=== PATIENT | male | born 1975 | race Two or more races ===

== ENCOUNTER 2024-08-18 11:55 | Emergency (ER) | payer MEDICARE, MEDICAID ==
[~2024-08-18] VITALS: Ht 182.9 cm; Wt 83.0 kg
[2024-08-18 12:34] VITALS: BP 148/97; PULSE 86; RESP 16; TEMP 98.1; O2SAT 98
--- NOTE | 2024-08-18 13:07 | ED.PDOC ---
Eye-HPI HPI Comments A 49 YEAR OLD MALE PRESENTS TO THE ED WITH CHIEF COMPLAINT OF DENTAL PAIN. PATIENT REPORTS THAT HIS RIGHT LOWER MOLAR BROKE OFF AND NOW HAS BEEN CAUSING PAIN SINCE YESTERDAY. PATIENT RELAYS THAT HIS NEXT DENTAL APPOINTMENT IS ON THURSDAY. PATIENT REQUESTS PAIN MEDICATION AND ANTIBIOTICS TO HOLD HIM OVER TILL THEN. PATIENT DENIES ANY BLEEDING, DISCHARGE, OR SORE THROAT. NO OTHER SYMPTOMS REPORTED AT THIS TIME OF CARE. Chief Complaint: Tooth Pain Time Seen by MD: 13:03 Primary Care Provider: VALENTIN Burk Notes: Nurses Notes, Medications, Allergies Allergies: Coded Allergies: NO KNOWN ALLERGIES (Unverified , 08/18/24) Home Meds Active Scripts Tramadol HCl (Tramadol HCl) 50 Mg Tab, 50 MG PO TID, #20 TAB Prov:EDDI KAPADIA 08/18/24 Clindamycin Hcl (Clindamycin Hcl) 300 Mg Cap, 1 CAP PO TID, #30 CAP Prov:EDDI KAPADIA 08/18/24 Information Source: Patient Mode of Arrival: Ambulatory Timing: Days Duration: Since onset Prehospital treatment: None Quality: Pain Lids: Normal Conjunctiva: Normal Cornea: Normal Pupils: Normal EOM: Normal Fundus: Normal Slit lamp exam: Normal Anterior chamber: Normal Mouth Location: Right, Lower, Tooth/Teeth, Gums Mouth: Right, Lower, Molar Nose: Normal Sinuses: Normal Oropharynx: Normal Throat Exposed to: None History of: None Associated signs and symptoms: Tooth Pain Past Medical History PAST MEDICAL HISTORY: Denies Surgical History: Denies all surgeries Family History Family History: Reviewed,noncontributory to illness Social History Smoker: Non-Smoker Alcohol: Denies ETOH Use Drugs: Denies Drug Use Lives In: Home Constitutional: denies: chills, diaphoresis, fatigue, fever, malaise, sweats, weakness, others EENTM: reports: mouth pain (RIGHT LOWER GUM PAIN AND SWELLING); denies: blurred vision, double vision, ear bleeding, ear discharge, ear drainage, ear pain, ear ringing, eye pain, eye redness, hearing loss, mouth swelling, nasal discharge, nose bleeding, nose congestion, nose pain, photophobia, tearing, throat pain, throat swelling, voice changes, others Respiratory: denies: cough, hemoptysis, orthopnea, SOB at rest, shortness of breath, SOB with excertion, stridor, wheezing, others Cardiovascular: denies: chest pain, dizzy spells, diaphoresis, Dyspnea on exertion, edema, irregular heart beat, left arm pain, lightheadedness, palpitations, PND, syncope, others Gastrointestinal: denies: abdomen distended, abdominal pain, blood streaked bowels, constipated, diarrhea, dysphagia, difficulty swallowing, hematemesis, melena, nausea, poor appetite, poor fluid intake, rectal bleeding, rectal pain, vomiting, others Genitourinary: denies: burning, dysuria, flank pain, frequency, hematuria, incontinence, penile discharge, penile sore, pain, testicle pain, testicle swelling, urgency, others Neurological: denies: dizziness, fainting, headache, left sided numbness, left sided weakness, numbness, paresthesia, pre-existing deficit, right sided numbness, right sided weakness, seizure, speech problems, tingling, tremors, weakness, others Musculoskeletal: denies: back pain, gout, joint pain, joint swelling, muscle pain, muscle stiffness, neck pain, others Integumetry: denies: bruises, change in color, change in hair/nails, dryness, laceration, lesions, lumps, rash, wounds, others Allergic/Immunocompromised: denies: Difficulty Healing, Frequent Infections, Hives, Itching, others Hematologic/Lymphatic: denies: anemia, blood clots, easy bleeding, easy bruising, swollen glands, others Endocrine: denies: excessive hunger, excessive sweating, excessive thirst, excessive urination, flushing, intolerance to cold, intolerance to heat, unexplained weight gain, unexplained weight loss, others Psychiatric: denies: anxiety, bipolar disorder, depression, hopeless, panic disorder, schizophrenia, sleepless, suicidal, others All Other Systems: Reviewed and Negative Physical Exam General Appearance: No Apparent Distress, Normal HEENT: Normal ENT Inspection, PERRL/EOMI, Other (ERYTHEMA AND SWELLING ON RIGHT LOWER GUM AROUND TOOTH, DENTAL INFECTION, NO FACIAL SWELLING. ) Neck: Full Range of Motion, Non-Tender, Normal, Normal Inspection Respiratory: Chest Non-Tender, Lungs Clear, No Accessory Muscle Use, No Respiratory Distress, Normal Breath Sounds Cardiovascular: No Edema, No JVD, No Murmur, No Gallop, Normal Peripheral Pulses, Regular Rate/Rhythm Breast Exam: Deferred Gastrointestinal: No Organomegaly, Non Tender, No Pulsatile Mass, Normal Bowel Sounds, Soft Genitalia: Deferred Pelvic: Deferred Rectal: Deferred Extremities: No calf tenderness, Normal capillary refill, Normal inspection, Normal range of motion, Non-tender, No pedal edema Musculoskeletal : Apperance: Normal Neurologic: Alert, can crimper II-XII nml as Tested, No Motor Deficits, Normal Affect, Normal Mood, No Sensory Deficits Cerebellar Function: Normal Reflexes: Normal Skin: Dry, Normal Color, Warm Peripheral Pulses: 2+ carotid (R), 2+ carotid (L) Lymphatic: No Adenopathy Was a procedure done? Was a procedure done?: No EENT DIFF Eye: N/A Ear: Otitis Media, Dental Sore Throat: Pharyngitis X-Ray, Labs, Meds, VS Vital Signs Date Time Temp Pulse Resp B/P (MAP) Pulse Ox O2 Delivery O2 Flow Rate FiO2 08/18/24 12:34 98.1 86 16 148/97 (114) 98 98.1 08/18/24 12:34 86 16 98 Room Air 08/18/24 12:13 98.1 86 16 141/106 (118) 98 148/97 (114) X-Ray, Labs, Meds, VS Comment EXTERNAL MEDICAL RECORDS REVIEWED: [NONE] INDEPENDENT HISTORIANS: [NONE] SOCIAL DETERMINANTS OF HEALTH: [NONE] LABS ORDERED: NONE REVIEWED AND INTERPRETED RESULTS: NONE IMAGING ORDERED: NONE TREATMENTS ORDERED: NONE PROCEDURES PERFORMED: NONE CRITICAL CARE TIME: NONE I HAVE DISCUSSED THE PATIENT WITH THE ATTENDING PHYSICIAN DR. REICH AND HE AGREES WITH THE PATIENT'S PLAN OF CARE AND DISPOSITION. BASED ON HISTORY OF PRESENT ILLNESS, AND PHYSICAL EXAM, PATIENT WILL BE DISCHARGED HOME. DISCUSSED PLAN FOR DISCHARGE HOME WITH RX. MEDICATION WARNINGS GIVEN. SHARED DECISION MAKING: DISCUSSED WITH PATIENT THAT THEIR WORKUP WAS NORMAL. P ATIENT INSTRUCTED TO FOLLOW UP WITH PRIMARY CARE PROVIDER IN 1-2 DAYS FOR RE- EVALUATION OF SYMPTOMS. PATIENT VERBALIZES UNDERSTANDING TO RETURN TO ED FOR NEW OR WORSENING SYMPTOMS OR IF FOLLOW UP WITH PCP CANNOT BE OBTAINED. PATIENT FEELS COMFORTABLE GOING HOME AT THIS TIME. ALL QUESTIONS ADDRESSED AT TIME OF DISCHARGE. Time of 1ST Reevaluation: 13:11 Reevaluation 1ST: Unchanged Patient Education/Counseling: Diagnosis, Treatment, Need For Follow Up Family Education/Counseling: Diagnosis, Treatment, Need For Follow Up, No Family Present Medical Screening: No EMC Exist At This Time Departure 1 Departure Time of Disposition: 13:24 Impression: Primary Impression: Infected dental caries Disposition: HOME / SELF CARE / HOMELESS Condition: Stable Additional Instructions: FOLLOW-UP WITH PCP IN 1 TO 2 DAYS. TAKE MEDICATIONS PRESCRIBED. RETURN TO ED FOR ANY NEW OR WORSENING SYMPTOMS. e-Prescriptions Tramadol HCl (Tramadol HCl) 50 Mg Tab 50 MG PO TID, #20 TAB Prov: EDDI KAPADIA 08/18/24 Clindamycin Hcl (Clindamycin Hcl) 300 Mg Cap 1 CAP PO TID, #30 CAP Prov: EDDI KAPADIA 08/18/24 Discharged With: Self Critical Care Note Critical Care Time?: No Stability Stability form required: No Heart Score Heart Score: Heart Score Response (Comments) Value History N/A 0 EKG N/A 0 Age N/A 0 Risk Factors N/A 0 Troponin N/A 0 Total 0 I personally scribed for EDDI KAPADIA ([email or web address]) on 08/18/24 at 13:07. Electronically submitted by Lance Tony [email or web address]). EDDI KAPADIA Aug 18, 2024 13:07
[2024-08-18] MEDS ORDERED: CLIN1CAP70 PO (13:23)
[2024-08-18] MEDS ORDERED: TRAM-626 PO (13:23)
== END 2024-08-18 13:24 | disposition home or self-care (01) ==
LOC: ER 12:10
DX: K02.9 Dental caries, unspecified (principal); Z79.899 Other long term (current) drug therapy

== ENCOUNTER 2024-09-15 07:46 | Emergency (ER) | payer MEDICAID, MEDICARE ==
[~2024-09-15] VITALS: Ht 185.4 cm; Wt 85.9 kg
[~2024-09-15 07:46] MED LIST: CLIN1CAP70 PO; TRAM-626 PO
[2024-09-15 08:13] VITALS: BP 156/87; PULSE 79; RESP 18; TEMP 97.6; O2SAT 100
[2024-09-15] MEDS ORDERED: TRAM-626 PO (08:22)
--- NOTE | 2024-09-15 08:33 | ED.PDOC ---
Eye-HPI HPI Comments A 49 YEAR OLD MALE PRESENTS TO THE ED WITH CHIEF COMPLAINT OF DENTAL PAIN. PATIENT REPORTS THAT HE HAS BEEN EXPERIENCING RIGHT LOWER MOLAR PAIN FOR THE PAST 3-4 DAYS AFTER HIS TOOTH BROKE. PATIENT RELAYS THAT HIS PAIN IS A 10/10 AND REQUESTS PAIN MEDICATION STRONGER THAN IBUPROFEN IT HAS PROVIDED NO RELIEF FOR HIM. PATIENT NOTES HE MADE AN APPOINTMENT ALREADY WITH HIS DENTIST. PATIENT DENIES ANY FEVER, CHILLS, SORE THROAT, OR MOUTH SWELLING. NO OTHER SYMPTOMS REPORTED AT THIS TIME OF CARE. Chief Complaint: Tooth Pain Time Seen by MD: 08:28 Primary Care Provider: VALENTIN Reviewed Notes: Nurses Notes, Medications, Allergies Allergies: Coded Allergies: NO KNOWN ALLERGIES (Unverified , 08/18/24) Home Meds Active Scripts Tramadol HCl (Tramadol HCl) 50 Mg Tab, 50 MG PO BID, #20 TAB Prov:EDDI KAPADIA 09/15/24 Clindamycin Hcl (Clindamycin Hcl) 300 Mg Cap, 1 CAP PO TID, #30 CAP Prov:EDDI KAPADIA 09/15/24 Tramadol HCl (Tramadol HCl) 50 Mg Tab, 50 MG PO TID, #20 TAB Prov:EDDI KAPADIA 08/18/24 Clindamycin Hcl (Clindamycin Hcl) 300 Mg Cap, 1 CAP PO TID, #30 CAP Prov:EDDI KAPADIA 08/18/24 Information Source: Patient Mode of Arrival: Ambulatory Timing: Days Duration: Since onset Prehospital treatment: None Quality: Pain Lids: Normal Conjunctiva: Normal Cornea: Normal Pupils: Normal EOM: Normal Fundus: Normal Anterior chamber: Normal Mouth Location: Right, Lower, Tooth/Teeth, Gums Mouth: Right, Lower, Premolar, Molar, Tender, Carious ENT Ear Exam: Normal, Normal, Normal Nose: Normal Sinuses: Normal Oropharynx: Normal Onset: Spontaneous Throat Exposed to: None History of: None Associated signs and symptoms: Tooth Pain Past Medical History PAST MEDICAL HISTORY: Denies Surgical History: Denies all surgeries Family History Family History: Reviewed,noncontributory to illness Social History Smoker: Non-Smoker Alcohol: Denies ETOH Use Drugs: Denies Drug Use Lives In: Home Constitutional: denies: chills, diaphoresis, fatigue, fever, malaise, sweats, weakness, others EENTM: reports: mouth pain; denies: blurred vision, double vision, ear bleeding, ear discharge, ear drainage, ear pain, ear ringing, eye pain, eye redness, hearing loss, mouth swelling, nasal discharge, nose bleeding, nose congestion, nose pain, photophobia, tearing, throat pain, throat swelling, voice changes, others Respiratory: denies: cough, hemoptysis, orthopnea, SOB at rest, shortness of breath, SOB with excertion, stridor, wheezing, others Cardiovascular: denies: chest pain, dizzy spells, diaphoresis, Dyspnea on e xertion, edema, irregular heart beat, left arm pain, lightheadedness, palpitations, PND, syncope, others Gastrointestinal: denies: abdomen distended, abdominal pain, blood streaked bowels, constipated, diarrhea, dysphagia, difficulty swallowing, hematemesis, melena, nausea, poor appetite, poor fluid intake, rectal bleeding, rectal pain, vomiting, others Genitourinary: denies: burning, dysuria, flank pain, frequency, hematuria, incontinence, penile discharge, penile sore, pain, testicle pain, testicle swelling, urgency, others Neurological: denies: dizziness, fainting, headache, left sided numbness, left sided weakness, numbness, paresthesia, pre-existing deficit, right sided numbness, right sided weakness, seizure, speech problems, tingling, tremors, weakness, others Musculoskeletal: denies: back pain, gout, joint pain, joint swelling, muscle pain, muscle stiffness, neck pain, others Integumetry: denies: bruises, change in color, change in hair/nails, dryness, laceration, lesions, lumps, rash, wounds, others Allergic/Immunocompromised: denies: Difficulty Healing, Frequent Infections, Hives, Itching, others Hematologic/Lymphatic: denies: anemia, blood clots, easy bleeding, easy bruising, swollen glands, others Endocrine: denies: excessive hunger, excessive sweating, excessive thirst, excessive urination, flushing, intolerance to cold, intolerance to heat, unexplained weight gain, unexplained weight loss, others Psychiatric: denies: anxiety, bipolar disorder, depression, hopeless, panic disorder, schizophrenia, sleepless, suicidal, others All Other Systems: Reviewed and Negative Physical Exam General Appearance: No Apparent Distress, Normal HEENT: Normal ENT Inspection, PERRL/EOMI, Other (ERYTHEMA AND SWELLING ON RIGHT LOWER GUM AROUND TOOTH, DENTAL DECAY AND INFECTION, NO FACIAL SWELLING AND REDNESS. ) Neck: Full Range of Motion, Non-Tender, Normal, Normal Inspection Respiratory: Chest Non-Tender, Lungs Clear, No Accessory Muscle Use, No Respiratory Distress, Normal Breath Sounds Cardiovascular: No Edema, No JVD, No Murmur, No Gallop, Normal Peripheral Pu lses, Regular Rate/Rhythm Breast Exam: Deferred Gastrointestinal: No Organomegaly, Non Tender, No Pulsatile Mass, Normal Bowel Sounds, Soft Genitalia: Deferred Pelvic: Deferred Rectal: Deferred Extremities: No calf tenderness, Normal capillary refill, Normal inspection, Normal range of motion, Non-tender, No pedal edema Musculoskeletal : Apperance: Normal Neurologic: Alert, applications instructor II-XII nml as Tested, No Motor Deficits, Normal Affect, Normal Mood, No Sensory Deficits Cerebellar Function: Normal Reflexes: Normal Skin: Dry, Normal Color, Warm Peripheral Pulses: 2+ carotid (R), 2+ carotid (L) Lymphatic: No Adenopathy Was a procedure done? Was a procedure done?: No EENT DIFF Eye: N/A Ear: Otitis Externa, Otitis Media, Dental Mouth: Other (DENTAL INFECTION) X-Ray, Labs, Meds, VS Vital Signs Date Time Temp Pulse Resp B/P (MAP) Pulse Ox O2 Delivery O2 Flow Rate FiO2 09/15/24 08:13 97.6 79 18 158/108 (125) 100 97.6 09/15/24 08:13 79 18 100 Room Air 09/15/24 07:55 97.6 79 18 158/108 (125) 100 97.6 X-Ray, Labs, Meds, VS Comment EXTERNAL MEDICAL RECORDS REVIEWED: [NONE] INDEPENDENT HISTORIANS: [NONE] SOCIAL DETERMINANTS OF HEALTH: [NONE] LABS ORDERED: NONE REVIEWED AND INTERPRETED RESULTS: NONE IMAGING ORDERED: NONE TREATMENTS ORDERED: NONE PROCEDURES PERFORMED: NONE CRITICAL CARE TIME: NONE I HAVE DISCUSSED THE PATIENT WITH THE ATTENDING PHYSICIAN DR. REICH AND HE AGREES WITH THE PATIENT'S PLAN OF CARE AND DISPOSITION. BASED ON HISTORY OF PRESENT ILLNESS, AND PHYSICAL EXAM, PATIENT WILL BE DISCHARGED HOME. DISCUSSED PLAN FOR DISCHARGE HOME WITH RX: CLINDAMYCIN AND ULTRAM. MEDICATION WARNINGS GIVEN. SHARED DECISION MAKING: DISCUSSED WITH PATIENT THAT THEIR WORKUP WAS NORMAL. PATIENT INSTRUCTED TO FOLLOW UP WITH PRIMARY CARE PROVIDER IN 1-2 DAYS FOR RE- EVALUATION OF SYMPTOMS. PATIENT VERBALIZES UNDERSTANDING TO RETURN TO ED FOR NEW OR WORSENING SYMPTOMS OR IF FOLLOW UP WITH PCP CANNOT BE OBTAINED. PATIENT FEELS COMFORTABLE GOING HOME AT THIS TIME. ALL QUESTIONS ADDRESSED AT TIME OF DISCHARGE. Time of 1ST Reevaluation: 08:40 Reevaluation 1ST: Improved Patient Education/Counseling: Diagnosis, Treatment, Need For Follow Up Family Education/Counseling: Diagnosis, Treatment, Need For Follow Up, No Family Present Medical Screening: No EMC Exist At This Time Departure 1 Departure Time of Disposition: 08:40 Impression: Primary Impression: Dental infection Disposition: 01 HOME / SELF CARE / HOMELESS Condition: Stable Additional Instructions: FOLLOW-UP WITH PCP IN 1 TO 2 DAYS. TAKE MEDICATIONS PRESCRIBED. RETURN TO ED FOR ANY NEW OR WORSENING SYMPTOMS. e-Prescriptions Tramadol HCl (Tramadol HCl) 50 Mg Tab 50 MG PO BID, #20 TAB Prov: EDDI KAPADIA 09/15/24 Clindamycin Hcl (Clindamycin Hcl) 300 Mg Cap 1 CAP PO TID, #30 CAP Prov: EDDI KAPADIA 09/15/24 Discharged With: Self Critical Care Note Critical Care Time?: No Stability Stability form required: No Heart Score Heart Score: Heart Score Response (Comments) Value History N/A 0 EKG N/A 0 Age N/A 0 Risk Factors N/A 0 Troponin N/A 0 Total 0 I personally scribed for EDDI KAPADIA ([email or web address]) on 09/15/24 at 08:33. Electronically submitted by Lance Tony [email or web address]). EDDI KAPADIA Sep 15, 2024 08:33
== END 2024-09-15 08:35 | disposition home or self-care (01) ==
LOC: ER 07:46
DX: K04.7 Periapical abscess without sinus (principal); Z79.899 Other long term (current) drug therapy

== ENCOUNTER 2024-11-30 02:14 | Emergency (ER) | payer MEDICARE, MEDICAID ==
[~2024-11-30] VITALS: Ht 182.9 cm; Wt 91.7 kg
[2024-11-30 03:06] VITALS: BP 135/96; PULSE 86; RESP 16; TEMP 98.1; O2SAT 98
[2024-11-30] MEDS ORDERED: CYCL-837 PO (03:11)
[2024-11-30] MEDS ORDERED: IBUP-1456 PO (03:11)
[2024-11-30] MEDS: KETOROLAC TROMETH 60MG/2ML VIAL IM ONE (03:13)
--- NOTE | 2024-11-30 03:13 | ED.PDOC ---
Back pain HPI HPI Comments 49-year-old male presents to ER with complaints of back pain x3 days. 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 He rates his current pain a 10/10 to right lower lumbar region with radiation down posterior right leg. Denies use of medications for current symptoms. Patient presents to ER ambulatory, with steady gait, in mild distress. Denies fever, body aches, chills, night sweats, nausea/vomiting, numbness/tingling, shortness of breath, chest pain, abdominal pain, extremity weakness, trauma/falls, changes in urination/BM or any further symptoms/complaints Chief Complaint: Back Pain Time Seen by MD: 02:29 Primary Care Provider: VALENTIN Burk Notes: Nurses Notes, Medications, Allergies Allergies: Coded Allergies: NO KNOWN ALLERGIES (Unverified , 08/18/24) Home Meds Active Scripts Ibuprofen (Ibuprofen) 800 Mg Tab, 1 TAB PO TID PRN, #30 TAB 0 Refills Prov:SHANE MEDINA 11/30/24 Cyclobenzaprine Hcl (Cyclobenzaprine Hcl) 5 Mg Tab, 1 TAB PO QHSP, #14 TAB 0 Refills Prov:SHANE MEDINA 11/30/24 Tramadol HCl (Tramadol HCl) 50 Mg Tab, 50 MG PO BID, #20 TAB Prov:EDDI KAPADIA 09/15/24 Clindamycin Hcl (Clindamycin Hcl) 300 Mg Cap, 1 CAP PO TID, #30 CAP Prov:EDDI KAPADIA 09/15/24 Tramadol HCl (Tramadol HCl) 50 Mg Tab, 50 MG PO TID, #20 TAB Prov:EDDI KAPADIA 08/18/24 Clindamycin Hcl (Clindamycin Hcl) 300 Mg Cap, 1 CAP PO TID, #30 CAP Prov:EDDI KAPADIA 08/18/24 Information Source: Patient Mode of Arrival: Ambulatory Past Medical History PAST MEDICAL HISTORY: Anxiety Surgical History (Other): Jaw surgery Family History Family History: Unknown Social History Smoker: Non-Smoker Alcohol: Denies ETOH Use Drugs: Denies Drug Use Lives In: Home Constitutional: denies: chills, diaphoresis, fatigue, fever, malaise, sweats, weakness, others EENTM: denies: blurred vision, double vision, ear bleeding, ear discharge, ear drainage, ear pain, ear ringing, eye pain, eye redness, hearing loss, mouth pain, mouth swelling, nasal discharge, nose bleeding, nose congestion, nose pain, photophobia, tearing, throat pain, throat swelling, voice changes, others Respiratory: denies: cough, hemoptysis, orthopnea, SOB at rest, shortness of breath, SOB with excertion, stridor, wheezing, others Cardiovascular: denies: chest pain, dizzy spells, diaphoresis, Dyspnea on exertion, edema, irregular heart beat, left arm pain, lightheadedness, palpitations, PND, syncope, others Gastrointestinal: denies: abdomen distended, abdominal pain, blood streaked bowels, constipated, diarrhea, dysphagia, difficulty swallowing, hematemesis, melena, nausea, poor appetite, poor fluid intake, rectal bleeding, rectal pain, vomiting, others Genitourinary: denies: burning, dysuria, flank pain, frequency, hematuria, incontinence, penile discharge, penile sore, pain, testicle pain, testicle swelling, urgency, others Neurological: denies: dizziness, fainting, headache, left sided numbness, left sided weakness, numbness, paresthesia, pre-existing deficit, right sided numbness, right sided weakness, seizure, speech problems, tingling, tremors, weakness, others Musculoskeletal: reports: others (As stated in HPI) Integumetry: denies: bruises, change in color, change in hair/nails, dryness, laceration, lesions, lumps, rash, wounds, others Allergic/Immunocompromised: denies: Difficulty Healing, Frequent Infections, Hives, Itching, others Hematologic/Lymphatic: denies: anemia, blood clots, easy bleeding, easy bruising, swollen glands, others Endocrine: denies: excessive hunger, excessive sweating, excessive thirst, excessive urination, flushing, intolerance to cold, intolerance to heat, unexplained weight gain, unexplained weight loss, others Psychiatric: denies: anxiety, bipolar disorder, depression, hopeless, panic disorder, schizophrenia, sleepless, suicidal, others Physical Exam General Appearance: Mild Distress (Due to back pain) HEENT: PERRL/EOMI Neck: Full Range of Motion, Non-Tender, Normal Respiratory: Chest Non-Tender, Lungs Clear, No Accessory Muscle Use, No Respiratory Distress, Normal Breath Sounds Cardiovascular: No Murmur, No Gallop, Regular Rate/Rhythm Breast Exam: Deferred Gastrointestinal: Non Tender, No Pulsatile Mass, Soft Genitalia: Deferred Pelvic: Deferred Rectal: Deferred Extremities: Normal capillary refill, Normal range of motion Musculoskeletal : Extremity Location: Back (TTP to right lower lumbar paraspinals noted. No skin changes noted. Gait slow due to pain localized to right lower lumbar paraspinals) Neurologic: Alert, community development planner II-XII nml as Tested, No Motor Deficits, No Sensory Deficits Cerebellar Function: Normal Reflexes: Normal Skin: Dry, Normal Color, Warm Peripheral Pulses: 2+ femoral (R), 2+ femoral (L), 2+ dorsalis pedis (R), 2+ dorsalis pedis (L), 2+ Radial (R), 2+ Radial (L), 2+ Brachial (R), 2+ Brachial (L) Lymphatic: No Adenopathy Was a procedure done? Was a procedure done?: No Sedation Sedation?: No Back Pain Differential Dx Differential Diagnosis: AAA, Fracture, Urinary Tract Infection X-Ray, Labs, Meds, VS Vital Signs Date Time Temp Pulse Resp B/P (MAP) Pulse Ox O2 Delivery O2 Flow Rate FiO2 11/30/24 03:06 Room Air* 0 21 11/30/24 03:06 98.1 86 16 135/96 (109) 98 98.1 11/30/24 02:20 98.1 86 16 135/96 (109) 98 98.1 Current Medications Medications (Trade) Dose Ordered Sig/Jory Route Start Time Stop Time Status Last Admin Ketorolac Tromethamine (Toradol Injection) 60 mg ONCE ONCE IM 11/30/24 03:15 11/30/24 03:16 DC 11/30/24 03:13 PATIENT: CHARIS MINOR ACCT: [id number] UNIT: [id number] : 1975 LOC: ER ROOM / BED: / AGE / SEX: 49 / M ADM STATUS: REG ER SERVICE [id number] ORDERING PHYSICIAN: SHANE MEDINA PROCEDURE(s): LUMB2 - LUMBAR SPINE 3 VIEW REASON: lumbar backpain ORDER NUMBER(s): [id number], ACCESSION NUMBER(s): [id number] INDICATION: lumbar backpain TECHNIQUE: 2 views of the lumbar spine were obtained. COMPARISON: None FINDINGS: There are no acute fractures or subluxations. IMPRESSION: No acute fracture or subluxation. ATED BY: LV COOL MD DICTATED DATE/TIME: 11/30/24420 SIGNED BY: LV COOL MD SIGNED DATE/TIME: 11/30/24420 CC: Toradol 60 mg IM ordered Lumbar spine x-ray reviewed Patient neurovascularly intact and reported improvement in symptoms prior to discharge Advised on rest/no strenuous activity Advised to follow up with PCP in 1-2 days Patient verbalized understanding and agreeable with current plan of care Advised to return to ER immediately if symptoms worsen Images Reviewed?: Images reviewed and evaluated by me Time of 1ST Reevaluation: 02:54 Reevaluation 1ST: N/A Time of 2ND Reevaluation: 04:20 Reevaluation 2ND: Improved Patient Education/Counseling: Diagnosis, Treatment, Prognosis, Need For Follow Up Family Education/Counseling: No Family Present Departure 1 Departure Time of Disposition: 04:26 Impression: Primary Impression: Lumbar strain Qualified Codes: S39.012A - Strain of muscle, fascia and tendon of lower back, initial encounter Disposition: HOME / SELF CARE / HOMELESS Condition: Stable e-Prescriptions Ibuprofen (Ibuprofen) 800 Mg Tab 1 TAB PO TID PRN, #30 TAB 0 Refills Prov: SHANE MEDINA 11/30/24 Cyclobenzaprine Hcl (Cyclobenzaprine Hcl) 5 Mg Tab 1 TAB PO QHSP, #14 TAB 0 Refills Prov: SHANE MEDINA 11/30/24 Discharged With: Friend Critical Care Note Critical Care Time?: No Stability Stability form required: No Heart Score Heart Score: Heart Score Response (Comments) Value History N/A 0 EKG N/A 0 Age N/A 0 Risk Factors N/A 0 Troponin N/A 0 Total 0 SHANE MEDINA Nov 30, 2024 03:13
--- NOTE | 2024-11-30 04:24 | DVH ---
INDICATION: lumbar backpain TECHNIQUE: 2 views of the lumbar spine were obtained. COMPARISON: None FINDINGS: There are no acute fractures or subluxations. IMPRESSION: No acute fracture or subluxation.
== END 2024-11-30 04:27 | disposition home or self-care (01) ==
LOC: ER 02:16
DX: S39.012A Strain of muscle, fascia and tendon of lower back, initial encounter (principal); F41.9 Anxiety disorder, unspecified; X58.XXXA Exposure to other specified factors, initial encounter; Y93.89 Activity, other specified; Y92.89 Other specified places as the place of occurrence of the external cause; Y99.8 Other external cause status
CPT/HCPCS: 72100; 96372; 99283; J1885

== ENCOUNTER 2024-12-03 03:22 | Emergency (ER) | payer MEDICARE, MEDICAID ==
[~2024-12-03] VITALS: Ht 182.9 cm; Wt 95.8 kg
[~2024-12-03 03:22] MED LIST changes: +CYCL-837 PO; +IBUP-1456 PO
[2024-12-03 04:35] VITALS: BP 134/69; PULSE 74; RESP 16; TEMP 98.4; O2SAT 99
[2024-12-03] MEDS ORDERED: HYDROcodone-ACET 5/325MG TAB PO ONE (05:45)
[2024-12-03] MEDS ORDERED: IBUPROFEN 600 MG TAB PO ONE (05:45)
--- NOTE | 2024-12-03 05:55 | ED.PDOC ---
Back pain HPI HPI Comments 49-year-old male presents to the ED chief complaint right hip pain. Patient states sudden onset of right hip pain started 4 days ago after lifting heavy weights. Describes pain as sharp shooting pain to in her groin shooting down anterior leg 8/10 on pain scale. Patient states has not tried any [id number] relief measures. Denies any numbness, weakness. Chief Complaint: Lower Extremity Time Seen by MD: 03:24 Primary Care Provider: VALENTIN Burk Notes: Nurses Notes, Medications, Allergies Allergies: Coded Allergies: NO KNOWN ALLERGIES (Unverified , 08/18/24) Home Meds Active Scripts Ibuprofen (Ibuprofen) 800 Mg Tab, 1 TAB PO TID PRN, #30 TAB 0 Refills Prov:SHANE MEDINA 11/30/24 Cyclobenzaprine Hcl (Cyclobenzaprine Hcl) 5 Mg Tab, 1 TAB PO QHSP, #14 TAB 0 Refills Prov:SHANE MEDINA 11/30/24 Tramadol HCl (Tramadol HCl) 50 Mg Tab, 50 MG PO BID, #20 TAB Prov:EDDI KAPADIA 09/15/24 Clindamycin Hcl (Clindamycin Hcl) 300 Mg Cap, 1 CAP PO TID, #30 CAP Prov:EDDI KAPADIA 09/15/24 Tramadol HCl (Tramadol HCl) 50 Mg Tab, 50 MG PO TID, #20 TAB Prov:EDDI KAPADIA 08/18/24 Clindamycin Hcl (Clindamycin Hcl) 300 Mg Cap, 1 CAP PO TID, #30 CAP Prov:EDDI KAPADIA 08/18/24 Information Source: Patient Mode of Arrival: Ambulatory Past Medical History PAST MEDICAL HISTORY: Anxiety Family History Family History: Unknown Social History Smoker: Non-Smoker Alcohol: Denies ETOH Use Drugs: Denies Drug Use Lives In: Home Constitutional: denies: chills, diaphoresis, fatigue, fever, malaise, sweats, weakness, others EENTM: denies: blurred vision, double vision, ear bleeding, ear discharge, ear drainage, ear pain, ear ringing, eye pain, eye redness, hearing loss, mouth pain, mouth swelling, nasal discharge, nose bleeding, nose congestion, nose pain, photophobia, tearing, throat pain, throat swelling, voice changes, others Respiratory: denies: cough, hemoptysis, orthopnea, SOB at rest, shortness of breath, SOB with excertion, stridor, wheezing, others Cardiovascular: denies: chest pain, dizzy spells, diaphoresis, Dyspnea on exertion, edema, irregular heart beat, left arm pain, lightheadedness, palpitations, PND, syncope, others Gastrointestinal: denies: abdomen distended, abdominal pain, blood streaked bowels, constipated, diarrhea, dysphagia, difficulty swallowing, hematemesis, melena, nausea, poor appetite, poor fluid intake, rectal bleeding, rectal pain, vomiting, others Genitourinary: denies: burning, dysuria, flank pain, frequency, hematuria, incontinence, penile discharge, penile sore, pain, testicle pain, testicle swelling, urgency, others Neurological: denies: dizziness, fainting, headache, left sided numbness, left sided weakness, numbness, paresthesia, pre-existing deficit, right sided numbness, right sided weakness, seizure, speech problems, tingling, tremors, weakness, others Musculoskeletal: reports: joint pain; denies: back pain, gout, joint swelling, muscle pain, muscle stiffness, neck pain, others Integumetry: denies: bruises, change in color, change in hair/nails, dryness, laceration, lesions, lumps, rash, wounds, others Allergic/Immunocompromised: denies: Difficulty Healing, Frequent Infections, Hives, Itching, others Hematologic/Lymphatic: denies: anemia, blood clots, easy bleeding, easy bruising, swollen glands, others Endocrine: denies: excessive hunger, excessive sweating, excessive thirst, excessive urination, flushing, intolerance to cold, intolerance to heat, unexplained weight gain, unexplained weight loss, others Psychiatric: denies: anxiety, bipolar disorder, depression, hopeless, panic disorder, schizophrenia, sleepless, suicidal, others Physical Exam General Appearance: No Apparent Distress, Normal HEENT: Pharynx Normal Neck: Full Range of Motion, Non-Tender Respiratory: Lungs Clear, No Respiratory Distress, Normal Breath Sounds Cardiovascular: No Murmur, Normal Peripheral Pulses, Regular Rate/Rhythm Breast Exam: Deferred Gastrointestinal: Non Tender, Soft Genitalia: Deferred Pelvic: Deferred Rectal: Deferred Extremities: Normal capillary refill, Normal inspection, Normal range of motion, Non-tender, No pedal edema Musculoskeletal : Location: Right Extremity Location: Hip (Moderate discomfort on full range of motion. In his palpated anterior and lateral hip no noted external gross visible trauma. Strength sensory and motion intact no shortening or rotation of the right leg positive pedal pulse) Apperance: Normal Neurologic: Alert, operations general agent II-XII nml as Tested, No Motor Deficits, Normal Affect, Normal Mood, No Sensory Deficits Cerebellar Function: Normal Reflexes: Normal Skin: Dry, Normal Color, Warm Lymphatic: No Adenopathy Was a procedure done? Was a procedure done?: No Back Pain Differential Dx Differential Diagnosis: Fracture, Musculoskeletal Pain X-Ray, Labs, Meds, VS Vital Signs Date Time Temp Pulse Resp B/P (MAP) Pulse Ox O2 Delivery O2 Flow Rate FiO2 12/03/24 04:35 98.4 74 16 134/69 (90) 99 98.4 X-Ray, Labs, Meds, VS Comment PATIENT CALLED OUT IN THE LOBBY AND OUTSIDE X3 WITH NO ANSWER PATIENT ELOPED Time of 1ST Reevaluation: 05:30 Reevaluation 1ST: Unchanged Patient Education/Counseling: Diagnosis, Treatment, Prognosis, Need For Follow Up Family Education/Counseling: No Family Present Departure 1 Departure Time of Disposition: 06:52 Impression: Primary Impression: Pain in left hip Disposition: 07 LEFT AWOL/ELOPED Condition: Stable Discharged With: Self Critical Care Note Critical Care Time?: No Stability Stability form required: JOO Ram Dec 03, 2024 05:55
== END 2024-12-03 06:52 | disposition left against medical advice (07) ==
LOC: ER 03:28
DX: M25.551 Pain in right hip (principal); F41.9 Anxiety disorder, unspecified; Z79.899 Other long term (current) drug therapy

== ENCOUNTER 2024-12-07 09:03 | Emergency (ER) | payer MEDICARE, MEDICAID ==
[~2024-12-07] VITALS: Ht 182.9 cm; Wt 95.7 kg
--- NOTE | 2024-12-07 09:14 | ED.PDOC ---
Musculoskeletal HPI Comments This is a 49 year old male RYAN presenting to the ED with chief complaint of right leg pain. Patient reports that he has been experiencing right inner thigh pain the day after doing "leg day" at the gym for the past 4 days, feeling a pop in his inner thigh. Patient relays that his pain radiates down to his knee and calf. Patient states that he is only able to walk around for a short time before pain becomes unbearable. Patient denies any chest pain, SOB, numbness, weakness, tingling, or fall injury. Chief Complaint: Lower Extremity Time Seen by MD: 09:09 Primary Care Provider: VALENTIN Burk Notes: Nurses Notes, Breaker Oiler Notes, Medications, Allergies Allergies: Coded Allergies: NO KNOWN ALLERGIES (Unverified , 08/18/24) Home Meds Active Scripts Ibuprofen (Ibuprofen) 800 Mg Tab, 1 TAB PO TID PRN, #30 TAB 0 Refills Prov:SHANE MEDINA 11/30/24 Cyclobenzaprine Hcl (Cyclobenzaprine Hcl) 5 Mg Tab, 1 TAB PO QHSP, #14 TAB 0 Refills Prov:SHANE MEDINA 11/30/24 Tramadol HCl (Tramadol HCl) 50 Mg Tab, 50 MG PO BID, #20 TAB Prov:EDDI KAPADIA 09/15/24 Clindamycin Hcl (Clindamycin Hcl) 300 Mg Cap, 1 CAP PO TID, #30 CAP Prov:EDDI KAPADIA 09/15/24 Tramadol HCl (Tramadol HCl) 50 Mg Tab, 50 MG PO TID, #20 TAB Prov:EDDI KAPADIA 08/18/24 Clindamycin Hcl (Clindamycin Hcl) 300 Mg Cap, 1 CAP PO TID, #30 CAP Prov:EDDI KAPADIA 08/18/24 Information Source: Patient, Emergency Med Personnel Mode of Arrival: EMS Location: Right Extremity Location: Leg Timing: Days Prehospital treatment: None Severity: Moderate Able to Move Extremity: Yes Bear Weight: Limited Pain: Moderate Mechanism: Hyperextension Circumstances: Sporting Onset of Symptoms: Spontaneous Symptoms: Pain DVT Risk Factors: NONE Last Tetanus: Unknown Past Medical History PAST MEDICAL HISTORY: Anxiety Surgical History: Denies all surgeries Family History Family History: Reviewed,noncontributory to illness, Unknown Social History Smoker: Non-Smoker Alcohol: Denies ETOH Use Drugs: Denies Drug Use Lives In: Home Constitutional: denies: chills, diaphoresis, fatigue, fever, malaise, sweats, weakness, others EENTM: denies: blurred vision, double vision, ear bleeding, ear discharge, ear drainage, ear pain, ear ringing, eye pain, eye redness, hearing loss, mouth pain, mouth swelling, nasal discharge, nose bleeding, nose congestion, nose p ain, photophobia, tearing, throat pain, throat swelling, voice changes, others Respiratory: denies: cough, hemoptysis, orthopnea, SOB at rest, shortness of breath, SOB with excertion, stridor, wheezing, others Cardiovascular: denies: chest pain, dizzy spells, diaphoresis, Dyspnea on exertion, edema, irregular heart beat, left arm pain, lightheadedness, palpitations, PND, syncope, others Gastrointestinal: denies: abdomen distended, abdominal pain, blood streaked bowels, constipated, diarrhea, dysphagia, difficulty swallowing, hematemesis, melena, nausea, poor appetite, poor fluid intake, rectal bleeding, rectal pain, vomiting, others Genitourinary: denies: burning, dysuria, flank pain, frequency, hematuria, incontinence, penile discharge, penile sore, pain, testicle pain, testicle swelling, urgency, others Neurological: denies: dizziness, fainting, headache, left sided numbness, left sided weakness, numbness, paresthesia, pre-existing deficit, right sided numbness, right sided weakness, seizure, speech problems, tingling, tremors, weakness, others Musculoskeletal: reports: others (Right leg pain); denies: back pain, gout, joint pain, joint swelling, muscle pain, muscle stiffness, neck pain Integumetry: denies: bruises, change in color, change in hair/nails, dryness, laceration, lesions, lumps, rash, wounds, others Allergic/Immunocompromised: denies: Difficulty Healing, Frequent Infections, Hives, Itching, others Hematologic/Lymphatic: denies: anemia, blood clots, easy bleeding, easy bruising, swollen glands, others Endocrine: denies: excessive hunger, excessive sweating, excessive thirst, excessive urination, flushing, intolerance to cold, intolerance to heat, unexplained weight gain, unexplained weight loss, others Psychiatric: denies: anxiety, bipolar disorder, depression, hopeless, panic disorder, schizophrenia, sleepless, suicidal, others All Other Systems: Reviewed and Negative Physical Exam General Appearance: No Apparent Distress, Normal HEENT: Normal ENT Inspection, Pharynx Normal, TMs Normal Neck: Full Range of Motion, Non-Tender, Normal, Normal Inspection Respiratory: Chest Non-Tender, Lungs Clear, No Accessory Muscle Use, No Re spiratory Distress, Normal Breath Sounds Cardiovascular: No Edema, No JVD, No Murmur, No Gallop, Normal Peripheral Pulses, Regular Rate/Rhythm Breast Exam: Deferred Gastrointestinal: No Organomegaly, Non Tender, No Pulsatile Mass, Normal Bowel Sounds, Soft Genitalia: Deferred Pelvic: Deferred Rectal: Deferred Extremities: No calf tenderness, Normal capillary refill, Normal inspection, Normal range of motion, Non-tender, No pedal edema Musculoskeletal : Location: Right Extremity Location: Hip Apperance: Tenderness (Tenderness to palpation) Neurologic: Alert, water control station engineer II-XII nml as Tested, No Motor Deficits, Normal Affect, Normal Mood, No Sensory Deficits Cerebellar Function: Normal Reflexes: Normal Skin: Dry, Normal Color, Warm Lymphatic: No Adenopathy Was a procedure done? Was a procedure done?: No Differential Diagnosis EXT Differential Diagnosis: Fracture, Sprain, Dislocation, Contusion, Strain X-Ray, Labs, Meds, VS Vital Signs Date Time Temp Pulse Resp B/P (MAP) Pulse Ox O2 Delivery O2 Flow Rate FiO2 12/07/24 11:39 85 14 98 Room Air* 0 21 12/07/24 10:06 98.4 82 16 136/82 (100) 97 98.4 12/07/24 10:06 82 16 97 Room Air 12/07/24 09:09 98.4 81 18 158/88 (111) 99 98.4 Current Medications Medications (Trade) Dose Ordered Sig/Jory Route Start Time Stop Time Status Last Admin Acetaminophen/ Hydrocodone Bitart ([place] 5/325MG Tab) 1 tab ONCE ONCE PO 12/07/24 09:15 12/07/24 09:16 DC 12/07/24 10:05 Right Hip XR: FINDINGS/IMPRESSION: No acute fracture of the pelvis or hips. No significant degenerative changes of the hips. Right Knee XR: IMPRESSION: 1. No fracture or significant degenerative changes of the right knee. 2. Mild soft tissue prominence anterior to the patella and patellar tendon may be due to contusion or prepatellar bursitis. Images Reviewed?: Images reviewed and evaluated by me Time of 1ST Reevaluation: 10:09 Reevaluation 1ST: Unchanged Patient Education/Counseling: Diagnosis, Treatment Family Education/Counseling: No Family Present Additional Information Previous visits reviewed: 12/03/24 right hip pain The following tests were ordered, and results were reviewed by me: Right knee XR, Right hip XR Additional Information was gathered from interviewing the following independent historians: EMS I reviewed and agreed with the following test results read by other providers: Right knee XR, Right hip XR I discussed treatment and results with medical personnel and: patient Comprehensive systems review obtained and negative except for what is stated in the HPI. Departure 1 Departure Time of Disposition: 11:55 (Patient likely with a right hip sprain. We will discharge patient home with outpatient follow up) Impression: Primary Impression: Sprain of right hip Qualified Codes: S73.101A - Unspecified sprain of right hip, initial encounter Disposition: HOME / SELF CARE / HOMELESS Condition: Stable Referrals: AZUL NEFF MD Additional Instructions: You likely sprained your hip. Your x-rays were benign. You referred to orthopedics. Please call for an appointment. For pain you can take the followinam: Ibuprofen 400mg with food Noon: Acetaminophen 1000mg 4pm: Ibuprofen 400mg with food 8pm: Acetaminophen 1000mg You were prescribed oxycodone to take as needed for breakthrough pain. You should follow up with your regular doctor within one week to ensure you are doing better. If your symptoms worsen or you have any other concerns then please return to the ER. e-Prescriptions Oxycodone HCl (Oxycodone Hydrochloride) 5 Mg Tab 5 MG PO QID PRN for 4 Days, #16 TAB Prov: JARROD DOMINGUEZ MD 12/07/24 Discharged With: Self Critical Care Note Critical Care Time?: No Stability Stability form required: No Heart Score Heart Score: Heart Score Response (Comments) Value History N/A 0 EKG N/A 0 Age N/A 0 Risk Factors N/A 0 Troponin N/A 0 Total 0 I personally scribed for JARROD DOMINGUEZ MD ([email or web address]) on 12/07/24 at 09:14. Electronically submitted by Lance Tony ([email or web address]). I personally scribed for JARROD DOMINGUEZ MD ([email or web address]) on 12/07/24 at 09:19. Electronically submitted by Lance Tony ([email or web address]). I personally scribed for JARROD DOMINGUEZ MD ([email or web address]) on 12/07/24 at 10:43. Electronically submitted by Lance Tony ([email or web address]). JARROD DOMINGUEZ MD Dec 07, 2024 09:14
[2024-12-07] MEDS: HYDROcodone-ACET 5/325MG TAB PO ONE (10:05)
--- NOTE | 2024-12-07 10:10 | DVH ---
EXAM: XY R KNEE 3V XRAY HISTORY: PAIN COMPARISON: None TECHNIQUE: 3 views of the right knee were performed. FINDINGS: No acute fracture is identified about the right knee. No significant joint space narrowing. No evid ence of significant joint effusion. There is mild soft tissue prominence anterior to the patella and patellar tendon. IMPRESSION: 1. No fracture or significant degenerative changes of the right knee. 2. Mild soft tissue prominence anterior to the patella and patellar tendon may be due to contusion or prepatellar bursitis.
--- NOTE | 2024-12-07 10:10 | DVH ---
CLINICAL INDICATION: PAIN TECHNIQUE: AP view of the pelvis and AP and frogleg lateral views of the right hip were performed. X Y R HIP COMPLETE XRAY Comparison: None FINDINGS/IMPRESSION: No acute fracture of the pelvis or hips. No significant degenerative changes of the hips.
[2024-12-07 11:39] VITALS: PULSE 85; RESP 14; O2SAT 98
[2024-12-07] MEDS ORDERED: OXYC-900 PO (11:57)
[2024-12-07 12:08] VITALS: BP 139/89; PULSE 82; RESP 18; TEMP 98.6; O2SAT 97
== END 2024-12-07 12:09 | disposition home or self-care (01) ==
LOC: EDBD 09:03 → ER 09:03
DX: S73.101A Unspecified sprain of right hip, initial encounter (principal); X58.XXXA Exposure to other specified factors, initial encounter; Y93.89 Activity, other specified; Y92.89 Other specified places as the place of occurrence of the external cause; Y99.8 Other external cause status
CPT/HCPCS: 73502; 73562

== ENCOUNTER 2024-12-10 16:50 | Emergency (ER) | payer MEDICARE, MEDICAID ==
[~2024-12-10] VITALS: Ht 182.9 cm; Wt 95.5 kg
[~2024-12-10 16:50] MED LIST changes: +OXYC-900 PO
--- NOTE | 2024-12-10 17:09 | ED.PDOC ---
History of Present Illness HPI Comments 49 y/o M, RYAN, presents to the ED for CC of pelvic pain. EMS reports, patient is coming from home where he complains of pelvic pain s/p lifting weight at the gym x4days ago. Patient relays, he was seen at [facility] on Thursday (12/07/24) for SS and was prescribed pain Rx which he has since, ran out of. Patient relays, symptoms have not improved. Patient denies new injury, trauma, or fall. No other symptoms or modifying factors present at this time. Chief Complaint: Pelvic Pain Time Seen by MD: 17:02 Primary Care Provider: VALENTIN Reviewed Notes: Nurses Notes, Lodge Attendant Notes, Medications, Allergies Allergies: Coded Allergies: NO KNOWN ALLERGIES (Unverified , 08/18/24) Home Meds Active Scripts Oxycodone HCl (Oxycodone Hydrochloride) 5 Mg Tab, 5 MG PO QID PRN for 4 Days, #16 TAB Prov:JARROD DOMINGUEZ MD 12/07/24 Ibuprofen (Ibuprofen) 800 Mg Tab, 1 TAB PO TID PRN, #30 TAB 0 Refills Prov:SHANE MEDINA 11/30/24 Cyclobenzaprine Hcl (Cyclobenzaprine Hcl) 5 Mg Tab, 1 TAB PO QHSP, #14 TAB 0 Refills Prov:SHANE MEDINA 11/30/24 Tramadol HCl (Tramadol HCl) 50 Mg Tab, 50 MG PO BID, #20 TAB Prov:EDDI KAPADIA 09/15/24 Clindamycin Hcl (Clindamycin Hcl) 300 Mg Cap, 1 CAP PO TID, #30 CAP Prov:EDDI KAPADIA 09/15/24 Tramadol HCl (Tramadol HCl) 50 Mg Tab, 50 MG PO TID, #20 TAB Prov:EDDI KAPADIA 08/18/24 Clindamycin Hcl (Clindamycin Hcl) 300 Mg Cap, 1 CAP PO TID, #30 CAP Prov:EDDI KAPADIA 08/18/24 Information Source: Patient, Emergency Med Personnel Mode of Arrival: EMS Severity: Moderate Timing: Days Duration: Since onset Prehospital treatment: None Medication Refill: Ran out of Medication Past Medical History PAST MEDICAL HISTORY: Anxiety Surgical History: Denies all surgeries Surgical History (Other): Recent history of right hip strain Family History Family History: Reviewed,noncontributory to illness, Unknown Social History Smoker: Non-Smoker Alcohol: Denies ETOH Use Drugs: Denies Drug Use Lives In: Home Constitutional: denies: chills, diaphoresis, fatigue, fever, malaise, sweats, weakness, others EENTM: denies: blurred vision, double vision, ear bleeding, ear discharge, ear drainage, ear pain, ear ringing, eye pain, eye redness, hearing loss, mouth pain, mouth swelling, nasal discharge, nose bleeding, nose congestion, nose pain, photophobia, tearing, throat pain, throat swelling, voice changes, others Respiratory: denies: cough, hemoptysis, orthopnea, SOB at rest, shortness of breath, SOB with excertion, stridor, wheezing, others Cardiovascular: denies: chest pain, dizzy spells, diaphoresis, Dyspnea on exertion, edema, irregular heart beat, left arm pain, lightheadedness, palpitations, PND, syncope, others Gastrointestinal: denies: abdomen distended, abdominal pain, blood streaked bowels, constipated, diarrhea, dysphagia, difficulty swallowing, hematemesis, melena, nausea, poor appetite, poor fluid intake, rectal bleeding, rectal pain, vomiting, others Genitourinary: denies: burning, dysuria, flank pain, frequency, hematuria, incontinence, penile discharge, penile sore, pain, testicle pain, testicle swelling, urgency, others Neurological: denies: dizziness, fainting, headache, left sided numbness, left sided weakness, numbness, paresthesia, pre-existing deficit, right sided n umbness, right sided weakness, seizure, speech problems, tingling, tremors, weakness, others Musculoskeletal: reports: others (Right hip pain); denies: back pain, gout, joint pain, joint swelling, muscle pain, muscle stiffness, neck pain Integumetry: denies: bruises, change in color, change in hair/nails, dryness, laceration, lesions, lumps, rash, wounds, others Allergic/Immunocompromised: denies: Difficulty Healing, Frequent Infections, Hives, Itching, others Hematologic/Lymphatic: denies: anemia, blood clots, easy bleeding, easy bruising, swollen glands, others Endocrine: denies: excessive hunger, excessive sweating, excessive thirst, excessive urination, flushing, intolerance to cold, intolerance to heat, unexplained weight gain, unexplained weight loss, others Psychiatric: denies: anxiety, bipolar disorder, depression, hopeless, panic disorder, schizophrenia, sleepless, suicidal, others All Other Systems: Reviewed and Negative Physical Exam General Appearance: Mild Distress (Moderate distress due to hip pain concerns. Patient states he took pain medication just prior to transport via EMS.), Normal HEENT: Normal ENT Inspection, Pharynx Normal, TMs Normal Neck: Full Range of Motion, Non-Tender, Normal, Normal Inspection Respiratory: Chest Non-Tender, Lungs Clear, No Accessory Muscle Use, No Respiratory Distress, Normal Breath Sounds Cardiovascular: No Edema, No JVD, No Murmur, No Gallop, Normal Peripheral Pulses, Regular Rate/Rhythm Breast Exam: Deferred Gastrointestinal: No Organomegaly, Non Tender, No Pulsatile Mass, Normal Bowel Sounds, Soft Genitalia: Deferred Pelvic: Deferred Rectal: Deferred Extremities: Other (Anterior reveal aspect of the right hip is diffusely tender to palpation with significant reduced range of motion. Distal neurovascularly intact.) Neurologic: Alert, No Motor Deficits, No Sensory Deficits Cerebellar Function: NOT DONE Reflexes: NOT DONE Skin: Dry, Normal Color, Warm Lymphatic: No Adenopathy Was a procedure done? Was a procedure done?: No Differential Dx Considerations may include: musculoskeletal pain, hip strain X-Ray, Labs, Meds, VS Vital Signs Date Time Temp Pulse Resp B/P (MAP) Pulse Ox O2 Delivery O2 Flow Rate FiO2 12/10/24 17:22 76 14 97 Room Air* 0 21 12/10/24 17:22 98.5 76 14 132/88 (103) 97 98.5 12/10/24 16:56 97.8 80 16 146/97 (113) 97 97.8 Current Medications Medications (Trade) Dose Ordered Sig/Jory Route Start Time Stop Time Status Last Admin Ketorolac Tromethamine (Toradol Injection) 30 mg ONCE ONCE IM 12/10/24 17:15 12/10/24 17:16 DC 12/10/24 17:17 X-Ray, Labs, Meds, VS Comment Spent time discussing the patient's medication request with him. Advised that I will provide him with a another short term narcotic pain medication, but the patient needs to follow up with the primary care provider for long-term management as needed. Time of 1ST Reevaluation: 18:25 Reevaluation 1ST: Improved Consultation: PCP Patient Education/Counseling: Diagnosis, Treatment Family Education/Counseling: Diagnosis, Treatment, No Family Present Departure 1 Departure Time of Disposition: 18:25 Impression: Primary Impression: Strain of right hip Disposition: HOME / SELF CARE / HOMELESS Condition: Stable Additional Instructions: Advised patient utilize pain medication as needed for symptomatic relief as well as ice therapy. Patient needs to follow up with primary care provider as scheduled. e-Prescriptions Hydrocodone-Acetaminophen (Hydrocodone Bitartrate/AC 10-325 mg) 1 Tab Tab 1 TAB PO Q8HP PRN, #9 TAB Prov: ELOISE RIVERS PAC 12/10/24 Ibuprofen Micronized (Ibuprofen) 800 Mg Tab 800 MG PO Q8HP PRN, #15 TAB Prov: ELOISE RIVERS PAC 12/10/24 Discharged With: Self, Friend Critical Care Note Critical Care Time?: No Stability Stability form required: No Heart Score Heart Score: Heart Score Response (Comments) Value History N/A 0 EKG N/A 0 Age N/A 0 Risk Factors N/A 0 Troponin N/A 0 Total 0 I personally scribed for ELOISE RIVERS PAC ([email or web address]) on 12/10/24 at 17:08. Electronically submitted by Camryn Robles ([email or web address]). ELOISE RIVERS PAC Dec 10, 2024 17:08
[2024-12-10] MEDS: KETOROLAC TROMETH 60MG/2ML VIAL IM ONE (17:17)
[2024-12-10 17:22] VITALS: BP 132/88; PULSE 76; RESP 14; TEMP 98.5; O2SAT 97
[2024-12-10] MEDS ORDERED: HYDR-4798 PO (18:27)
[2024-12-10] MEDS ORDERED: IBUP-1455 PO (18:27)
== END 2024-12-10 18:47 | disposition home or self-care (01) ==
LOC: EDUNIT# 16:50 → ER 16:50 → EDBD 16:50 → ER 18:47
DX: S76.011A Strain of muscle, fascia and tendon of right hip, initial encounter (principal); F41.9 Anxiety disorder, unspecified; X58.XXXA Exposure to other specified factors, initial encounter; Y93.89 Activity, other specified; Y92.89 Other specified places as the place of occurrence of the external cause; Y99.8 Other external cause status
CPT/HCPCS: 96372; 99283; J1885

== ENCOUNTER 2025-03-23 08:36 | Emergency (ER) | payer MEDICAID, MEDICARE ==
[~2025-03-23] VITALS: Ht 185.4 cm; Wt 92.3 kg
[~2025-03-23 08:36] MED LIST changes: +HYDR-4798 PO; +IBUP-1455 PO
[2025-03-23 10:46] LABS: Hematocrit 45.8 % (41.0-53.0); Hemoglobin 15.4 g/dL (13.5-17.5); Mean Corpuscular Hemoglobin 27.1 pg (28.0-32.0); Mean Corpuscular Volume 80.6 fL (80.0-100.0); Nucleated Red Blood Cells % 0.0 %
[2025-03-23 10:52] LABS: Chloride 102 mmol/L (98-107); Potassium 4.5 mmol/L (3.5-5.1); Sodium 139 mmol/L (136-145)
[2025-03-23 10:53] LABS: Anion Gap 10 (5-15); Carbon Dioxide 27 mmol/L (20-31)
[2025-03-23 10:54] LABS: Calcium 10.2 mg/dL (8.7-10.4)
[2025-03-23 10:58] LABS: BUN/Creatinine Ratio 10.9 (10.0-20.0); Blood Urea Nitrogen 13 mg/dL (9-23)
[2025-03-23 11:02] LABS: Glucose 135 mg/dL (74-106)
[2025-03-23 11:06] LABS: Acetaminophen < 2.0 UG/ML (10.0-20.0); Salicylate < 3.0 mg/dL (-30)
--- NOTE | 2025-03-23 11:09 | ED.PDOC ---
Psychiatric HPI Comments 49 y/o M with PMHx of anxiety, presents to the ED for CC of suicidal ideation. Patient reports, to have feelings of wanting to harm himself by ingesting a large amount of pills. Patient states however, that he does not want that to be the case and has seeked medical attention in hopes of receiving help. At this time patient denies homicidal ideation, visual hallucinations, or auditory hallucinations. No other symptoms or modifying factors are present at this time. Chief Complaint: Mental Health Time Seen by MD: 09:00 Primary Care Provider: VALENTIN Burk Notes: Nurses Notes, Medications, Allergies Information Source: Patient Mode of Arrival: Ambulatory Severity: Unable to Care for Self Severity of Pain: None Severity of Mental Status: Moderate Severity of Symptoms: Moderate Timing: Days Duration: Since onset Prehospital treatment: None Presents with: Suicidal Ideation Ingestion: None Circumstance: None Current substance abuse: None Stressors: None History of: None Associated signs and symptoms: Depression, Hopeless, Anxiety Past Medical History PAST MEDICAL HISTORY: Anxiety Surgical History: Denies all surgeries Family History Family History: Reviewed,noncontributory to illness, Unknown Social History Smoker: Non-Smoker Alcohol: Denies ETOH Use Drugs: Denies Drug Use Lives In: Home Constitutional: denies: chills, diaphoresis, fatigue, fever, malaise, sweats, weakness, others EENTM: denies: blurred vision, double vision, ear bleeding, ear discharge, ear drainage, ear pain, ear ringing, eye pain, eye redness, hearing loss, mouth pain, mouth swelling, nasal discharge, nose bleeding, nose congestion, nose pain, photophobia, tearing, throat pain, throat swelling, voice changes, others Respiratory: denies: cough, hemoptysis, orthopnea, SOB at rest, shortness of breath, SOB with excertion, stridor, wheezing, others Cardiovascular: denies: chest pain, dizzy spells, diaphoresis, Dyspnea on exertion, edema, irregular heart beat, left arm pain, lightheadedness, palpitations, PND, syncope, others Gastrointestinal: denies: abdomen distended, abdominal pain, blood streaked bowels, constipated, diarrhea, dysphagia, difficulty swallowing, hematemesis, melena, nausea, poor appetite, poor fluid intake, rectal bleeding, rectal pain, vomiting, others Genitourinary: denies: burning, dysuria, flank pain, frequency, hematuria, incontinence, penile discharge, penile sore, pain, testicle pain, testicle swelling, urgency, others Neurological: denies: dizziness, fainting, headache, left sided numbness, left sided weakness, numbness, paresthesia, pre-existing deficit, right sided numbness, right sided weakness, seizure, speech problems, tingling, tremors, weakness, others Musculoskeletal: denies: back pain, gout, joint pain, joint swelling, muscle pain, muscle stiffness, neck pain, others Integumetry: denies: bruises, change in color, change in hair/nails, dryness, laceration, lesions, lumps, rash, wounds, others Allergic/Immunocompromised: denies: Difficulty Healing, Frequent Infections, Hives, Itching, others Hematologic/Lymphatic: denies: anemia, blood clots, easy bleeding, easy bruising, swollen glands, others Endocrine: denies: excessive hunger, excessive sweating, excessive thirst, excessive urination, flushing, intolerance to cold, intolerance to heat, unexplained weight gain, unexplained weight loss, others Psychiatric: reports: suicidal; denies: anxiety, bipolar disorder, depression, hopeless, panic disorder, schizophrenia, sleepless, others All Other Systems: Reviewed and Negative Physical Exam General Appearance: No Apparent Distress, Normal HEENT: Normal ENT Inspection, Pharynx Normal Neck: Full Range of Motion, Non-Tender, Normal, Normal Inspection Respiratory: Chest Non-Tender, Lungs Clear, No Accessory Muscle Use, No Respiratory Distress, Normal Breath Sounds Cardiovascular: No Edema, No Murmur, No Gallop, Normal Peripheral Pulses, Regular Rate/Rhythm Breast Exam: Deferred Gastrointestinal: No Organomegaly, Non Tender, No Pulsatile Mass, Normal Bowel Sounds, Soft Genitalia: Deferred Pelvic: Deferred Rectal: Deferred Extremities: No calf tenderness, Normal capillary refill, Normal inspection, Normal range of motion, Non-tender, No pedal edema Musculoskeletal : Apperance: Normal Neurologic: Alert, product development carpenter II-XII nml as Tested, No Motor Deficits, Normal Affect, Normal Mood, No Sensory Deficits Cerebellar Function: Normal Reflexes: Normal Skin: Dry, Normal Color, Warm Lymphatic: No Adenopathy Was a procedure done? Was a procedure done?: No Psych Differential Dx Suicidal Differential Dx: Anxiety, Depression X-Ray, Labs, Meds, VS Vital Signs Date Time Temp Pulse Resp B/P (MAP) Pulse Ox O2 Delivery O2 Flow Rate FiO2 03/23/25 08:41 97.8 91 18 174/107 98 97.8 Lab Test 03/23/25 10:26 Range/Units White Blood Count 11.7 H 4.4-10.8 10^3/uL Red Blood Count 5.69 4.5-5.90 10^6/uL Hemoglobin 15.4 13.5-17.5 g/dL Hematocrit 45.8 41.0-53.0 % Mean Corpuscular Volume 80.6 80.0-100.0 fL Mean Corpuscular Hemoglobin 27.1 L 28.0-32.0 pg Mean Corpuscular Hemoglobin Concent 33.6 32.0-36.0 g/dL Red Cell Distribution Width 15.4 H 11.8-14.3 % Platelet Count 277 140-450 10^3/uL Mean Platelet Volume 7.5 6.9-10.8 fL Neutrophils (%) (Auto) 84.8 H 37.0-80.0 % Lymphocytes (%) (Auto) 12.1 10.0-50.0 % Monocytes (%) (Auto) 3.0 0.0-12.0 % Eosinophils (%) (Auto) 0.0 0.0-7.0 % Basophils (%) (Auto) 0.1 0.0-2.0 % Neutrophils # (Auto) 9.9 H 1.6-8.6 10 ^3/uL Lymphocytes # (Auto) 1.4 0.4-5.4 10 ^3/uL Monocytes # (Auto) 0.4 0-1.3 10 ^3/uL Eosinophils # (Auto) 0 0-0.8 10 ^3/uL Basophils # (Auto) 0 0-0.2 10 ^3/uL Nucleated Red Blood Cells 0.0 % Sodium Level 139 136-145 mmol/L Potassium Level 4.5 3.5-5.1 mmol/L Chloride Level 102 98-107 mmol/L Carbon Dioxide Level 27 20-31 mmol/L Anion Gap 10 5-15 Blood Urea Nitrogen Pending Creatinine Pending Glomerular Filtration Rate Calc Pending BUN/Creatinine Ratio Pending Serum Glucose Pending Calcium Level 10.2 8.7-10.4 mg/dL Salicylates Level Pending Acetaminophen Level Pending Plasma/Serum Blood Alcohol Pending Time of 1ST Reevaluation: 09:30 Reevaluation 1ST: Unchanged Patient Education/Counseling: Diagnosis, Treatment Family Education/Counseling: No Family Present Critical Care Note Critical Care Time?: No Stability Stability form required: No Heart Score Heart Score: Heart Score Response (Comments) Value History N/A 0 EKG N/A 0 Age N/A 0 Risk Factors N/A 0 Troponin N/A 0 Total 0 I personally scribed for JARROD DOMINGUEZ MD ([email or web address]) on 03/23/25 at 11:09. Electronically submitted by Camryn Robles ([email or web address]). JARROD DOMINGUEZ MD Mar 23, 2025 11:09
[2025-03-23] MEDS: ACETAMINOPHEN 500 MG TAB or CAP PO ONE (11:34)
[2025-03-23] MEDS: IBUPROFEN 400 MG TAB PO ONE (15:12)
--- NOTE | 2025-03-23 16:59 | DVHINCON2 ---
Date of Service if different f: Mar 23, 2025 Consultation ([facility]) Labs Laboratory Tests Test 03/23/25 10:26 White Blood Count 11.7 10^3/uL (4.4-10.8) Red Blood Count 5.69 10^6/uL (4.5-5.90) Hemoglobin 15.4 g/dL (13.5-17.5) Hematocrit 45.8 % (41.0-53.0) Mean Corpuscular Volume 80.6 fL (80.0-100.0) Mean Corpuscular Hemoglobin 27.1 pg (28.0-32.0) Mean Corpuscular Hemoglobin Concent 33.6 g/dL (32.0-36.0) Red Cell Distribution Width 15.4 % (11.8-14.3) Platelet Count 277 10^3/uL (140-450) Mean Platelet Volume 7.5 fL (6.9-10.8) Neutrophils (%) (Auto) 84.8 % (37.0-80.0) Lymphocytes (%) (Auto) 12.1 % (10.0-50.0) Monocytes (%) (Auto) 3.0 % (0.0-12.0) Eosinophils (%) (Auto) 0.0 % (0.0-7.0) Basophils (%) (Auto) 0.1 % (0.0-2.0) Neutrophils # (Auto) 9.9 10 ^3/uL (1.6-8.6) Lymphocytes # (Auto) 1.4 10 ^3/uL (0.4-5.4) Monocytes # (Auto) 0.4 10 ^3/uL (0-1.3) Eosinophils # (Auto) 0 10 ^3/uL (0-0.8) Basophils # (Auto) 0 10 ^3/uL (0-0.2) Nucleated Red Blood Cells 0.0 % Sodium Level 139 mmol/L (136-145) Potassium Level 4.5 mmol/L (3.5-5.1) Chloride Level 102 mmol/L (98-107) Carbon Dioxide Level 27 mmol/L (20-31) Anion Gap 10 (5-15) Blood Urea Nitrogen 13 mg/dL (9-23) Creatinine 1.19 mg/dL (0.700-1.30) Glomerular Filtration Rate Calc 76 mL/min (>90) BUN/Creatinine Ratio 10.9 (10.0-20.0) Serum Glucose 135 mg/dL (74-106) Calcium Level 10.2 mg/dL (8.7-10.4) Salicylates Level < 3.0 mg/dL (-30) Acetaminophen Level < 2.0 UG/ML (10.0-20.0) Plasma/Serum Blood Alcohol < 3.0 mg/dL (<10) Appetite: Fair Appearance: Stated age, Groomed Psychomotor activity: WNL Behavioral: Cooperative Eye contact: Limited Speech: Slowed, Soft Affect: Mood Congruent Mood: Depressed, Anxious Thought processes: Linear/Goal-directed Suicidal ideations: Present (active) Homicidal ideations: Absent Orientation: Person, Place, Time, Situation Memory intact: Recent Intellect: Average Abstractability: WNL Concentration: Adequate Attention: Adequate Judgement: Marginal Insight: Fair Vitals Vital Signs Date Time Temp Pulse Resp B/P (MAP) Pulse Ox O2 Delivery O2 Flow Rate FiO2 03/23/25 08:41 97.8 91 18 174/107 98 97.8 Medication adjusted: No Diagnosis: unspecified mood disorder v MDD, unspecified anxiety Plan : Patient continues to report he fears he may harm himself and does feel safe going home. Recommend inpatient psych transfer, patient may go voluntarily or [id number] hold for DTS History of Present Illness Reason for Consult : patient reporting SI HPI : This a 49-year-old male presented here reporting suicidal ideation and thoughts to OD on pills. Patient is evaluated via telepsychiatry platform. Patient reports he started having suicidal thoughts today. He reports anxiety and depression are "off the hook today" he cannot identify any trigger for this. He reports not feeling safe at home because he may harm himself. He also reports is incarcerated and lives with [facility]. He does not provide details on 's incarceration, if this is recent or duration of sentence. He feels depressed, has poor sleep appetite and seeking help. He does not report any plan for SI but did endorse history of OD on Xanax pills (unknown amount) 3 months ago. He denies homicidal ideation. He denies auditory/visual hallucinations or paranoid thoughts. he denies any recent substance use. Past Psychiatric History : He reports history of depression and bipolar. he was prescribed Prozac 20mg and zyprexa 5g. he has been compliant but did use last night. He had one suicide attempt with OD on Xanax. He reports multiple prior psych admissions and holds. He denies outpatient mental health services but pcp has been providing his prescriptions. Past Medical History : he denies Social History : He reports living with father cathie, he identifies this as stable housing. He took break from employment. No children. He denies any known family history. He reports hx marijuana use but denies any recent use, denies other substances. No UDS available ÁLVARO CARMEN DNP Mar 23, 2025 16:59
[2025-03-23] MEDS: METOCLOPRAMIDE HCL 10 MG TAB PO ONE (18:17)
[2025-03-23 19:02] VITALS: RESP 18; O2SAT 98
[2025-03-23] MEDS: VALSARTAN 80 MG TAB PO ONE (19:15)
[2025-03-23 21:00] VITALS: BP 120/77; PULSE 94; RESP 14; TEMP 98.3; O2SAT 96
[2025-03-23] MEDS: OLANZapine 5 MG TAB PO ONE (22:01)
[2025-03-24] MEDS: HYDROcodone-ACET 5/325MG TAB PO ONE (07:04)
== END 2025-03-24 10:43 | disposition left against medical advice (07) ==
LOC: ER 08:36
DX: R45.851 Suicidal ideations (principal); F32.A Depression, unspecified; F41.9 Anxiety disorder, unspecified; Z91.51 Personal history of suicidal behavior
CPT/HCPCS: 36415; 80048; 80320; 80329; 85025; 99284; J8597

== ENCOUNTER 2025-05-05 09:32 | Inpatient (IN) | payer MEDICARE, MEDICAID ==
[~2025-05-05] VITALS: Ht 177.8 cm; Wt 95.3 kg
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
[2025-05-05 14:22] LABS: Amphetamine Screen, Urine Neg (NEGATIVE); Barbiturate Scree,Urine Neg (NEGATIVE); Benzodiazephine Screen, Urine Pos (NEGATIVE); Cannabinoid Screen, Urine Pos (NEGATIVE); Cocaine Screen, Urine Neg (NEGATIVE); Opiate Scree,Urine Neg (NEGATIVE); Phencyclidine Screen, Urine Neg (NEGATIVE)
[2025-05-05 14:22] LABS: Hematocrit 47.2 % (41.0-53.0); Hemoglobin 15.6 g/dL (13.5-17.5); Mean Corpuscular Hemoglobin 28.2 pg (28.0-32.0); Mean Corpuscular Volume 85.2 fL (80.0-100.0); Nucleated Red Blood Cells % 0.1 %
[2025-05-05 14:26] LABS: Chloride 104 mmol/L (98-107); Potassium 4.1 mmol/L (3.5-5.1); Sodium 141 mmol/L (136-145)
[2025-05-05 14:27] LABS: Anion Gap 9 (5-15); Carbon Dioxide 28 mmol/L (20-31)
[2025-05-05 14:28] LABS: Calcium 9.5 mg/dL (8.7-10.4)
[2025-05-05 14:32] LABS: BUN/Creatinine Ratio 6.4 (10.0-20.0); Glucose 101 mg/dL (74-106)
[2025-05-05 14:48] LABS: Blood Urea Nitrogen 7 mg/dL (9-23)
[2025-05-05] MEDS ORDERED: DOCUSATE SOD 100 MG CAP PO PRN (21:45)
[2025-05-05] MEDS ORDERED: ACETAMINOPHEN 325 MG TAB PO PRN (21:45)
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
--- NOTE | 2025-05-05 22:39 | DVH ---
EXAM: XY CHEST XRAY 1 VIEW CLINICAL HISTORY: chest pain TECHNIQUE: Single AP view of the chest WID: COMPARISON: XRAY CHEST 1 VIEW on DOS: 10/12/24 FINDINGS: Lines and tubes: None Chest: The heart size and pulmonary vasculature is within normal limits. No pleural effusion, pneumothorax, or consolidation. Lung apices are not included in the field of view. Linear bibasilar scarring or atelectasis. The osseous structures are grossly intact. IMPRESSION: 1. No acute cardiopulmonary abnormality. 2. Linear bibasilar scarring or atelectasis. 3. Lung apices are not included in the field of view.
[2025-05-05 22:43] LABS: Alanine Aminotransferase 27.0 U/L (7-40); Albumin 4.4 g/dL (3.2-4.8); Alkaline Phosphatase 66.0 U/L (46-116); Bilirubin, Direct 0.2 mg/dL (<0.3); Bilirubin, Total 0.8 mg/dL (0.2-1.0); Total Protein 7.3 g/dL (5.7-8.2)
[2025-05-05 23:08] VITALS: RESP 17; O2SAT 98
[2025-05-05] MEDS: KETOROLAC TROMETH 30 MG/ML 1ML VIAL IV ONE (23:18)
[2025-05-05] MEDS: ALPRAZolam 0.25 MG TAB PO SCH (23:18)
[2025-05-06] MEDS: SODIUM CHLORIDE 0.9% 1,000 ML IV ONE (02:33)
[2025-05-06 02:56] LABS: Hematocrit 41.5 % (41.0-53.0); Hemoglobin 14.1 g/dL (13.5-17.5); Mean Corpuscular Hemoglobin 28.5 pg (28.0-32.0); Mean Corpuscular Volume 84.2 fL (80.0-100.0); Nucleated Red Blood Cells % 0.1 %
[2025-05-06 03:11] LABS: Alanine Aminotransferase 20 U/L (7-40); Alkaline Phosphatase 58 U/L (46-116); Anion Gap 8 (5-15); BUN/Creatinine Ratio 9.0 (10.0-20.0); Blood Urea Nitrogen 9 mg/dL (9-23); Calcium 9.1 mg/dL (8.7-10.4); Carbon Dioxide 28 mmol/L (20-31); Chloride 105 mmol/L (98-107); Glucose 91 mg/dL (74-106); Potassium 4.2 mmol/L (3.5-5.1); Sodium 141 mmol/L (136-145); Total Protein 6.7 g/dL (5.7-8.2)
[2025-05-06 03:12] LABS: Albumin 3.9 g/dL (3.2-4.8); Bilirubin, Total 1.0 mg/dL (0.2-1.0)
[2025-05-06 04:00] VITALS: BP 118/75; PULSE 72; RESP 20; TEMP 98.4; O2SAT 95
[2025-05-06] MEDS: KETOROLAC TROMETH 30 MG/ML 1ML VIAL IV PRN (08:40)
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
[2025-05-06 16:42] VITALS: BP 127/104; PULSE 82; RESP 14; TEMP 98.6; O2SAT 100; O2SAT 98
[2025-05-06 17:00] VITALS: PULSE 90; RESP 17; O2SAT 98
[2025-05-06] MEDS ORDERED: FLUO1TAB12 PO (18:36)
[2025-05-06] MEDS ORDERED: ZOLP10TA PO (18:36)
[2025-05-06] MEDS ORDERED: GABA-339 PO (18:36)
[2025-05-06] MEDS ORDERED: OXYC30TA50 PO (18:36)
[2025-05-06] MEDS ORDERED: OLAN20TA PO (18:36)
[2025-05-06] MEDS ORDERED: MULT-1018 PO (18:36)
[2025-05-06 20:00] VITALS: BP 132/76; PULSE 59; PULSE 85; PULSE 93; RESP 16; RESP 17; O2SAT 96
[2025-05-06] MEDS: HYDROmorphone HCL 2 MG/ML VL/or syr IV PRN (20:46)
[2025-05-06 21:00] VITALS: BP 130/98; PULSE 84; RESP 17; TEMP 97.6; O2SAT 96
[2025-05-06 21:16] VITALS: BP 142/100; PULSE 84; RESP 16
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
== END 2025-05-06 23:59 | disposition left against medical advice (07) | DRG 88 ==
LOC: ER 09:32 → OVERFLOW 21:33 → TELE-EAST 05-06 16:45
PROVIDERS: ATTEND Emergency Medicine
DX: S06.0XAA Concussion with loss of consciousness status unknown, initial encounter (principal); G92.8 Other toxic encephalopathy; Z79.01 Long term (current) use of anticoagulants; F03.93 Unspecified dementia, unspecified severity, with mood disturbance; F32.A Depression, unspecified; F03.94 Unspecified dementia, unspecified severity, with anxiety; Z53.29 Procedure and treatment not carried out because of patient's decision for other reasons; Z91.51 Personal history of suicidal behavior; V98.8XXA Other specified transport accidents, initial encounter; Y93.89 Activity, other specified; Y92.89 Other specified places as the place of occurrence of the external cause; Y99.8 Other external cause status; F12.90 Cannabis use, unspecified, uncomplicated
CPT/HCPCS: 36415; 70450; 71045; 80048; 80053; 80076; 80307; 80320; 82140; 84443; 85025; 96361; 96374; 96375; 99291; G0378; J1885